=== PATIENT | male | born 1995 | race Caucasian/White ===

== ENCOUNTER 2019-03-06 11:30 | Emergency (ER) | payer OTHER ==
[~2019-03-06] VITALS: Ht 182.9 cm; Wt 104.3 kg
== END 2019-03-06 13:31 | disposition home or self-care (01) ==
LOC: ED 11:30
DX: S06.0X0A Concussion without loss of consciousness, initial encounter (principal); S39.012A Strain of muscle, fascia and tendon of lower back, initial encounter; V86.99XA Unspecified occupant of other special all-terrain or other off-road motor vehicle injured in nontraffic accident, initial encounter
CPT/HCPCS: 70450; 81001; 99284-25